=== PATIENT | female | born 1980 | race Caucasian/White ===

== ENCOUNTER → 2016-10-17 | Outpatient (CLI) | payer BC | LOC: LAB 07:32 | DX: E03.9 Hypothyroidism, unspecified (principal) | CPT/HCPCS: 36415; 84439; 84443; 84481 ==

== ENCOUNTER → 2016-10-25 | Outpatient (CLI) | payer BC | LOC: NM 11:55 | DX: I47.2 Ventricular tachycardia (principal); R07.9 Chest pain, unspecified; R94.39 Abnormal result of other cardiovascular function study | CPT/HCPCS: 93017 ==

== ENCOUNTER → 2016-10-31 | Outpatient (CLI) | payer BC | LOC: LAB 07:36 | DX: R07.9 Chest pain, unspecified (principal); R00.2 Palpitations; I47.2 Ventricular tachycardia | CPT/HCPCS: 80061 ==

== ENCOUNTER → 2017-04-17 | Outpatient (CLI) | payer BC | LOC: LAB 08:47 | DX: E03.9 Hypothyroidism, unspecified (principal) | CPT/HCPCS: 84439; 84443; 84481 ==

== ENCOUNTER → 2020-08-06 | Outpatient (CLI) | payer BC ==
[~2020-08-06] MED LIST: COLACE 100MG C100 MG PO; INDERAL TAB 2020 MG PO; LANSOPRAZOLE30 MG PO; MAXALT10 MG PO; NORCO 7.5-3251 EACH PO; SYNTHROID112 MCG PO; TRI-SPRINTEC T1 EACH PO
== END ==
LOC: HEART 5 15:47
DX: R07.9 Chest pain, unspecified (principal); R00.2 Palpitations; I49.3 Ventricular premature depolarization; I47.2 Ventricular tachycardia

== ENCOUNTER → 2020-08-14 | Outpatient (CLI) | payer BC | LOC: LAB 10:24 | DX: I47.2 Ventricular tachycardia (principal); I49.3 Ventricular premature depolarization; R07.89 Other chest pain; R00.2 Palpitations; E03.9 Hypothyroidism, unspecified | CPT/HCPCS: 36415; 80061; 80076 ==

== ENCOUNTER → 2021-03-09 | Outpatient (CLI) | payer OTHER | LOC: LBRF 20:16 | DX: Z20.822 Contact with and (suspected) exposure to COVID-19 (principal) | CPT/HCPCS: U0002 ==

== ENCOUNTER → 2021-06-16 | Outpatient (CLI) | payer BC | LOC: LAB 07:15 | DX: I49.3 Ventricular premature depolarization (principal); R07.89 Other chest pain; R00.2 Palpitations; I47.2 Ventricular tachycardia; E03.9 Hypothyroidism, unspecified | CPT/HCPCS: 36415; 80061; 80076 ==

== ENCOUNTER → 2021-09-14 | Outpatient (CLI) | payer BC | LOC: NM 07:38 | DX: R07.9 Chest pain, unspecified (principal); I49.3 Ventricular premature depolarization | CPT/HCPCS: 78452; 93017; A9502 ==

== ENCOUNTER → 2021-10-29 | Outpatient (CLI) | payer BC ==
[~2021-10-29] MED LIST changes: +HALOBETASOL PRO TP; +LIPITOR TAB 2020 MG PO; +NITROSTAT 0.40.4 MG SL; +PREVACID30 MG PO; +PROPRANOLOL HCL20 MG PO; +SYNTHROID125 MCG PO; +VITAMIN D350 MCG PO; +XIIDRA OP
[2021-10-29 13:04] LABS: HEMOGLOBIN 12.8 gm/dl (12.3-15.3); RED BLOOD COUNT 4.13 M/UL (4.00-5.10); WHITE BLOOD COUNT 10.6 K/UL (4.5-11.0)
[2021-10-29 13:23] LABS: BUN/CREATININE RATIO 22 (0-10)
== END ==
LOC: RAD 11:19
PROVIDERS: Internal Medicine Cardiovascular Disease
DX: I20.9 Angina pectoris, unspecified (principal); R07.9 Chest pain, unspecified; I49.3 Ventricular premature depolarization; M43.9 Deforming dorsopathy, unspecified
CPT/HCPCS: 36415; 71046; 80048; 85025

== ENCOUNTER → 2021-12-21 | Outpatient (CLI) | payer BC | LOC: LAB 08:42 | DX: E78.5 Hyperlipidemia, unspecified (principal); I20.9 Angina pectoris, unspecified; R07.89 Other chest pain; Z00.00 Encounter for general adult medical examination without abnormal findings | CPT/HCPCS: 36415; 80061; 80076 ==

== ENCOUNTER → 2022-04-26 | Outpatient (CLI) | payer BC | LOC: MAMO 04-20 09:00 | DX: Z12.31 Encounter for screening mammogram for malignant neoplasm of breast (principal) | CPT/HCPCS: 76641; 77063; 77067 ==